=== PATIENT | female | born 1965 | race Caucasian/White ===

== ENCOUNTER 2019-04-14 10:04 | Day surgery (SDC) | payer OTHER ==
[~2019-04-14] VITALS: Ht 162.6 cm; Wt 73.0 kg
[2019-04-14] MEDS ORDERED: fentaNYL 0.05 MG/ML VIAL ONE (13:40)
[2019-04-14] MEDS ORDERED: LIDOCAINE 2% 100 MG/5 ML UJET TP ONE (13:40)
[2019-04-14] MEDS ORDERED: fentaNYL 0.05 MG/ML VIAL IVP ONE (14:30)
== END 2019-04-14 14:30 | disposition home or self-care (01) ==
LOC: MDS 10:04 → MMU 10:04 → MDS 14:30
PROVIDERS: ATTEND Internal Medicine Gastroenterology
DX: Z12.11 Encounter for screening for malignant neoplasm of colon (principal); K64.8 Other hemorrhoids; E11.9 Type 2 diabetes mellitus without complications; Z79.899 Other long term (current) drug therapy; Z87.891 Personal history of nicotine dependence; Z79.84 Long term (current) use of oral hypoglycemic drugs; E78.00 Pure hypercholesterolemia, unspecified
CPT/HCPCS: 45378; J3010